=== PATIENT | female | born 1985 | race African-American/Black ===

== ENCOUNTER 2016-07-01 15:45 | Emergency (ER) | payer SELFPAY ==
--- NOTE | 2016-07-01 16:01 | ER Document Report ---
ED Medical Screen (RME) - General Time seen by provider: 16:00 Mode of Arrival: Ambulatory Information source: Patient TRAVEL OUTSIDE OF THE [place] IN LAST 30 DAYS: No - General Chief Complaint: Back Pain Stated Complaint: NECK AND BACK PAIN Notes: 30-year-old female presents to ED for neck and upper back pain. She states she was walking backwards yesterday when she turned around at the last seconds and wrist smacked into a pole. She states she did not fall down she did not lose consciousness. I have greeted and performed a rapid initial assessment of this patient. A comprehensive ED assessment and evaluation of the patient, analysis of test results and completion of medical decision making process will be conducted by an additional ED providers. (SABRINA AMARAL) - Related Data Allergies/Adverse Reactions: No Known Allergies Allergy (Unverified 07/01/16 15:53) Past Medical History - Social History Frequency of alcohol use: None Drug Abuse: None Renal/ Medical History: Denies: Hx Peritoneal Dialysis Doctor's Discharge - Discharge Clinical Impression: Cervical strain Condition: Stable Disposition: HOME, SELF-CARE Instructions: Muscle Strain ([facility]) Additional Instructions: Neck Injury (Cervical Strain) You have a neck strain. This is an injury to the muscles and ligaments in the neck. There is no evidence of a fracture of the neck bones. Also, no injury to the spinal cord or nerve roots was detected. Usually, stiffness and pain INCREASE for the first 24-48 hours after the injury. The pain will gradually resolve and the neck will become more mobile. Most patients are back at work or school within a few days. Typically, complete healing takes about two or three weeks. The usual initial treatment is rest and cold packs. A neck collar may be placed to keep the muscles of the neck at rest. Antiinflammatory and muscle relaxing medication are often used to reduce the spasm and irritation. You should call the doctor, or go to the hospital, if you develop numbness or weakness in any extremity, problems with your bladder or bowel, or pain radiating down the arms. Prescriptions: Methocarbamol [Robaxin 500 mg Tablet] 500 mg PO BID #15 tablet Forms: Return to Work
--- NOTE | 2016-07-01 18:51 | ER Document Report ---
ED Neck/Back Problem - General Mode of Arrival: Ambulatory Information source: Patient TRAVEL OUTSIDE OF THE [place] IN LAST 30 DAYS: No - HPI Patient complains to provider of: Pain - neck and left forehead, Injury, Neck Onset: Other - last night Where: Work Context: Other - see above Associated symptoms: Other - see above - General Chief Complaint: Back Pain Stated Complaint: NECK AND BACK PAIN Notes: 30-year-old female presents to the ED after running into a concrete pole last night while at work. He states that she hit her left forehead as her body was in motion. Patient claims that her neck and jaw continued in the direction of her motion while her head took the hit on the concrete pole. Patient states that she was dazed and had to hold onto the pole momentarily. Patient denies losing consciousness. (MILLIE MENJIVAR) - Related Data Allergies/Adverse Reactions: No Known Allergies Allergy (Unverified 07/01/16 15:53) Past Medical History - General Information source: Patient - Social History Smoking Status: Current Every Day Smoker Frequency of alcohol use: None Drug Abuse: None Family History: Reviewed & Not Pertinent Patient has suicidal ideation: No Patient has homicidal ideation: No - Medical History Medical History: Negative Renal/ Medical History: Denies: Hx Peritoneal Dialysis Surgical Hx: Negative Review of Systems - Review of Systems Constitutional: No symptoms reported EENT: No symptoms reported Cardiovascular: No symptoms reported Respiratory: No symptoms reported Gastrointestinal: No symptoms reported Genitourinary: No symptoms reported Female Genitourinary: No symptoms reported Musculoskeletal: See HPI, Neck pain Skin: No symptoms reported Hematologic/Lymphatic: No symptoms reported Neurological/Psychological: See HPI, Headaches - left forehead. denies: Lost consciousness -: Yes All other systems reviewed and negative Physical Exam - General General appearance: Alert In distress: None - HEENT Head: Normocephalic, Atraumatic Eyes: Normal Extraocular movements intact: Yes Pupils: PERRL Neck: Other - Paracervical strain on the right. No: Normal - Respiratory Respiratory status: No respiratory distress Breath sounds: Normal - Cardiovascular Rhythm: Regular Heart sounds: Normal auscultation - Abdominal Inspection: Normal Distension: No distension Tenderness: Nontender - Back Back: Normal, Nontender - No midline cervical tenderness. No midline cervical thoracic or lumbar tenderness., Tender - Paracervical strain on the right with parathoracic strain on the right. - Extremities General upper extremity: Normal inspection, Normal ROM General lower extremity: Normal inspection, Normal ROM - Neurological Neuro grossly intact: Yes Cognition: Normal Orientation: AAOx4 [place] Coma Scale Eye Opening: Spontaneous [place] Coma Scale Verbal: Oriented [place] Coma Scale Motor: Obeys Commands [place] Coma Scale Total: 15 Speech: Normal - Psychological Associated symptoms: Normal affect, Normal mood - Skin Skin Temperature: Warm Skin Moisture: Dry Skin Color: Normal Discharge - Discharge Clinical Impression: Strain of neck muscle Condition: Stable Disposition: HOME, SELF-CARE Instructions: Muscle Strain ([facility]) Additional Instructions: Neck Injury (Cervical Strain) You have a neck strain. This is an injury to the muscles and ligaments in the neck. There is no evidence of a fracture of the neck bones. Also, no injury to the spinal cord or nerve roots was detected. Usually, stiffness and pain INCREASE for the first 24-48 hours after the injury. The pain will gradually resolve and the neck will become more mobile. Most patients are back at work or school within a few days. Typically, complete healing takes about two or three weeks. The usual initial treatment is rest and cold packs. A neck collar may be placed to keep the muscles of the neck at rest. Antiinflammatory and muscle relaxing medication are often used to reduce the spasm and irritation. You should call the doctor, or go to the hospital, if you develop numbness or weakness in any extremity, problems with your bladder or bowel, or pain radiating down the arms. Prescriptions: Methocarbamol [Robaxin 500 mg Tablet] 500 mg PO BID #15 tablet Forms: Return to Work Scribe Documentation - Scribe Written by Kendall:: Kendall Lawson, 07/01/20162041 acting as scribe for :: Jenaro
[2016-07-01 18:59] VITALS: BP 127/81
== END 2016-07-01 18:59 | disposition home or self-care (01) ==
LOC: ER 15:45
DX: S16.1XXA Strain of muscle, fascia and tendon at neck level, initial encounter (principal); M54.2 Cervicalgia; R51 Headache; W22.09XA Striking against other stationary object, initial encounter; Y99.0 Civilian activity done for income or pay; F17.200 Nicotine dependence, unspecified, uncomplicated
CPT/HCPCS: 99283

== ENCOUNTER 2016-08-01 05:58 | Emergency (ER) | payer SELFPAY ==
[2016-08-01] MEDS ORDERED: ONDANSETRON ODT 4 MG TAB (6 TAB/DSPK) PO PRN (06:48)
[2016-08-01] MEDS ORDERED: ONDANSETRON 4 MG TAB.RAPDIS PO ONE (06:48)
[2016-08-01] MEDS ORDERED: AMOXICILLIN TRIHYDRATE 500 MG CAPSULE PO ONE (06:48)
--- NOTE | 2016-08-01 06:48 | ER Document Report ---
ED General - General Mode of Arrival: Ambulatory Information source: Patient TRAVEL OUTSIDE OF THE [place] IN LAST 30 DAYS: No - HPI Patient complains to provider of: Sinus Congestion and Vomiting Onset: Yesterday Associated symptoms: Other - see notes above - General Chief Complaint: Sinus Congestion Stated Complaint: HEADACHE POSSIBLE FEVER Notes: 30 year old female with no prior medical history presents to the ED complaining of sinus congestion and pain, headache, fever, nausea, vomiting, and diarrhea that started yesterday morning. Patient reports that she last vomited at approximately 0400 this morning. Patient is having green-yellow nasal discharge. Patient denies cough. (MILLIE MENJIVAR) - Related Data Allergies/Adverse Reactions: No Known Allergies Allergy (Unverified 07/01/16 15:53) Past Medical History - General Information source: Patient - Social History Smoking Status: Unknown if Ever Smoked Family History: Reviewed & Not Pertinent Patient has suicidal ideation: No Patient has homicidal ideation: No - Medical History Medical History: Negative Renal/ Medical History: Denies: Hx Peritoneal Dialysis Surgical Hx: Negative Review of Systems - Review of Systems Constitutional: See HPI, Fever EENT: See HPI, Nose congestion, Nose discharge, Sinus pressure Cardiovascular: No symptoms reported Respiratory: No symptoms reported. denies: Cough Gastrointestinal: See HPI, Diarrhea, Nausea, Vomiting Genitourinary: No symptoms reported Female Genitourinary: No symptoms reported Musculoskeletal: No symptoms reported Skin: No symptoms reported Hematologic/Lymphatic: No symptoms reported Neurological/Psychological: See HPI, Headaches -: Yes All other systems reviewed and negative Physical Exam - General General appearance: Alert In distress: None - HEENT Head: Normocephalic, Atraumatic Eyes: Normal Extraocular movements intact: Yes Pupils: PERRL Ears: Normal External canal: Normal Tympanic membrane: Retracted - bilaterally. No: Normal Sinus: Maxillary - Patient complains of pain with pressure to the frontal maxillary sinuses., Other - congestion. No: Normal Nasal: Other - nasal congestion. No: Normal - Respiratory Respiratory status: No respiratory distress Breath sounds: Normal - Cardiovascular Rhythm: Regular Heart sounds: Normal auscultation - Abdominal Inspection: Obese Distension: No distension Bowel sounds: Normal Tenderness: Nontender - Back Back: Normal - Extremities General upper extremity: Normal inspection, Normal ROM General lower extremity: Normal inspection, Normal ROM - Neurological Neuro grossly intact: Yes - Psychological Associated symptoms: Normal affect, Normal mood - Skin Skin Temperature: Warm Skin Moisture: Dry Skin Color: Normal - Vital signs Vitals: Temp Pulse Resp BP Pulse Ox 98.7 F 97 15 140/79 H 98 08/01/16 06:03 08/01/16 06:03 08/01/16 06:03 08/01/16 06:03 08/01/16 06:03 Discharge - Discharge Clinical Impression: Gastroenteritis Sinusitis Qualifiers: Sinusitis location: unspecified location Chronicity: acute Recurrence: not specified as recurrent Qualified Code(s): J01.90 - Acute sinusitis, unspecified Additional Instructions: Sinusitis: You have sinusitis, an infection of the sinus cavities of the face. The sinuses are air-filled chambers which open into the inside of the nose. Bacteria and pus fill a sinus, causing pain, drainage, and fever. Sinusitis is treated with antibiotics. Often, expectorants (to thin the sinus mucous) or decongestants (to reduce swelling) are prescribed as well. Healing requires seven to 10 days. Avoid chemical fumes, pollens, dusts, and smoke (especially cigarette smoke ). Keep the air humidified in your bedroom and work area and take plenty of liquids by mouth. This condition can be serious if the infection spreads. If your symptoms worsen, or if you develop severe headache, high fever, stiff neck, or a rash, you must call the doctor or return for re-evaluation. Gastroenteritis: You most likely have gastroenteritis. This is an irritation of the stomach and intestinal tract. It's usually caused by a virus, but can also be caused by bacteria, toxins that cause food poisoning, or excessive alcohol intake. Symptoms may include fever, painful abdominal cramps, nausea, vomiting , and diarrhea. Start with small amounts (two to six ounces) of clear liquids (soft drinks , herb teas, broth, etc). Try to take fluids frequently even if you are vomiting, to prevent dehydration. When liquids are being consumed successfully , advance to small amounts of bland food (mashed potato, toast) for 6 - 12 hours. Gastroenteritis rarely requires medication. It goes away by itself. Use good handwashing so you don't spread germs. Wash underwear in very hot water. If symptoms are severe, talk to the doctor. Call your physician if blood appears in your vomitus or stool, if vomiting lasts longer than 24 hours, if the abdominal pain worsens or becomes localized to one area, or if you develop high fever. TAKE THE ZOFRAN FOR NAUSEA IF NEEDED. TAKE THE AMOXICILLIN PRESCRIBED. DRINK SMALL SIPS OF COOL CLEAR LIQUIDS TODAY. REST. FOLLOW UP WITH A LOCAL MEDICAL DOCTOR IF NOT IMPROVING. RETURN TO THE EMERGENCY ROOM IF ANY NEW OR WORSENING SYMPTOMS. Prescriptions: Amoxicillin 1 tab PO TID #30 tab Ondansetron HCl [Zofran 4 mg Tablet] 1 - 2 tab PO Q4H PRN #15 tablet PRN Reason: Scribe Attestation: 08/01/16 06:53 I personally performed the services described in the documentation, reviewed and edited the documentation which was dictated to the scribe in my presence, and it accurately records my words and actions. (JORGE CURTIS) Scribe Documentation - Scribe Written by Kendall:: Kendall Lawson, 08/01/2016 0659 acting as scribe for :: Blade
[2016-08-01] MEDS ORDERED: NAPROXEN 250 MG TABLET PO ONE (07:02)
[2016-08-01 07:11] VITALS: BP 128/76
== END 2016-08-01 07:09 | disposition home or self-care (01) ==
LOC: ER 05:58
DX: K52.9 Noninfective gastroenteritis and colitis, unspecified (principal); J01.90 Acute sinusitis, unspecified; R09.81 Nasal congestion; R51 Headache; R50.9 Fever, unspecified; R11.2 Nausea with vomiting, unspecified; R19.7 Diarrhea, unspecified
CPT/HCPCS: 99283; S0119

== ENCOUNTER 2016-11-28 06:19 | Emergency (ER) | payer SELFPAY ==
--- NOTE | 2016-11-28 06:41 | ER Document Report ---
ED General - General Chief Complaint: Palpitations Stated Complaint: PALPATATIONS Time Seen by Provider: 11/28/16 06:35 TRAVEL OUTSIDE OF THE [place] IN LAST 30 DAYS: No - HPI Patient complains to provider of: Palpitations Onset: Just prior to arrival Notes: Well-appearing female no cardiac risk factors presents with perception of palpitations are concerned. Thought she had elevated blood pressure. Patient is no history of hypertension, hyperlipidemia, diabetes. No their father history of coronary disease. Patient has no chest pain, diaphoresis, nausea, vomiting. Patient has no symptoms at this time. - Related Data Allergies/Adverse Reactions: No Known Allergies Allergy (Verified 08/01/16 06:54) Past Medical History - Social History Smoking Status: Unknown if Ever Smoked Family History: Reviewed & Not Pertinent Patient has suicidal ideation: No Patient has homicidal ideation: No Renal/ Medical History: Denies: Hx Peritoneal Dialysis Review of Systems - Review of Systems Cardiovascular: Palpitations Physical Exam - Vital signs Vitals: Temp Pulse Resp BP Pulse Ox 98.3 F 87 18 132/82 H 99 11/28/16 06:20 11/28/16 06:20 11/28/16 06:20 11/28/16 06:20 11/28/16 06:20 Interpretation: Normal - General General appearance: Appears well, Alert - HEENT Head: Normocephalic, Atraumatic Eyes: Normal Pupils: PERRL - Respiratory Respiratory status: No respiratory distress Chest status: Nontender Breath sounds: Normal Chest palpation: Normal - Cardiovascular Rhythm: Regular Heart sounds: Normal auscultation Murmur: No - Abdominal Inspection: Normal Distension: No distension Bowel sounds: Normal Tenderness: Nontender Organomegaly: No organomegaly - Back Back: Normal, Nontender - Extremities General upper extremity: Normal inspection, Nontender, Normal color, Normal ROM , Normal temperature General lower extremity: Normal inspection, Nontender, Normal color, Normal ROM , Normal temperature, Normal weight bearing. No: Lindsey's sign - Neurological Neuro grossly intact: Yes Cognition: Normal Orientation: AAOx4 [place] Coma Scale Eye Opening: Spontaneous [place] Coma Scale Verbal: Oriented [place] Coma Scale Motor: Obeys Commands [place] Coma Scale Total: 15 Speech: Normal Motor strength normal: LUE, RUE, LLE, RLE Sensory: Normal - Psychological Associated symptoms: Normal affect, Normal mood - Skin Skin Temperature: Warm Skin Moisture: Dry Skin Color: Normal Course - Re-evaluation Re-evalutation: 11/28/16 07:43 Well-appearing female presents in no acute distress with resolved episodes of feeling her heart beating hard. Patient has no symptoms denies shortness of breath, nausea, vomiting, diaphoresis, chest pain. Patient happily sitting in room comfortably texting and talking with staff. Patient EKG unremarkable, chest x-ray shows no acute process as well. 11/28/16 07:44 Patient will follow-up with family doctor - Vital Signs Vital signs: Temp Pulse Resp BP Pulse Ox 98.3 F 87 21 H 130/70 H 100 11/28/16 06:20 11/28/16 06:20 11/28/16 06:40 11/28/16 06:39 11/28/16 06:40 Discharge - Discharge Clinical Impression: Heart palpitations Condition: Stable Disposition: HOME, SELF-CARE Additional Instructions: Follow-up with your family doctor. Referrals: AKI FREEDMAN MD [COMMUNITY BASED STAFF] - Follow up as needed
--- NOTE | 2016-11-28 07:41 | RADIOLOGY REPORT (SQ) ---
EXAM DESCRIPTION: CHEST PA/LAT COMPLETED DATE/TIME: 11/28/2016 7:32 am REASON FOR STUDY: palpatations COMPARISON: None. EXAM PARAMETERS: NUMBER OF VIEWS: two views TECHNIQUE: Digital Frontal and Lateral radiographic views of the chest acquired. RADIATION DOSE: NA LIMITATIONS: none FINDINGS: LUNGS AND PLEURA: No opacities, masses or pneumothorax. No pleural effusion. MEDIASTINUM AND HILAR STRUCTURES: No masses or contour abnormalities. HEART AND VASCULAR STRUCTURES: Heart normal size. No evidence for failure. BONES: No acute findings. HARDWARE: None in the chest. OTHER: No other significant finding. IMPRESSION: NO SIGNIFICANT RADIOGRAPHIC FINDING IN THE CHEST. TECHNICAL DOCUMENTATION: JOB ID: [id number] [employer]- All Rights Reserved
[2016-11-28 07:49] VITALS: BP 138/73
--- NOTE | 2016-11-28 16:33 | EKG REPORT ---
SEVERITY:- NORMAL ECG - SINUS RHYTHM : Confirmed by: Paulina Owusu 28-Nov-2016 16:32:57
== END 2016-11-28 07:52 | disposition home or self-care (01) ==
LOC: ER 06:19
DX: R00.2 Palpitations (principal); R03.0 Elevated blood-pressure reading, without diagnosis of hypertension
CPT/HCPCS: 71020; 93005; 93010; 99285

== ENCOUNTER 2017-10-15 14:19 | Emergency (ER) | payer OTHER ==
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
[2017-10-15] MEDS ORDERED: IBUPROFEN 800 MG TABLET PO ONE (15:10)
[2017-10-15] MEDS ORDERED: ACETAMINOPHEN 325 MG TABLET PO ONE (15:10)
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
[2017-10-15 16:43] VITALS: BP 129/71
== END 2017-10-15 16:43 | disposition home or self-care (01) ==
LOC: ER 14:19
DX: S16.1XXA Strain of muscle, fascia and tendon at neck level, initial encounter (principal); M41.84 Other forms of scoliosis, thoracic region; S39.012A Strain of muscle, fascia and tendon of lower back, initial encounter; V89.2XXA Person injured in unspecified motor-vehicle accident, traffic, initial encounter
CPT/HCPCS: 72040; 72070; 72110; 99283

== ENCOUNTER 2017-10-20 20:29 | Emergency (ER) | payer OTHER ==
[2017-10-20 20:38] VITALS: BP 152/98
[2017-10-20] MEDS ORDERED: PENICILLIN V POTASSIUM 500 MG TABLET PO ONE (20:52)
--- NOTE | 2017-10-20 20:54 | ER Document Report ---
HPI - HPI Patient complains to provider of: tooth pain Pain Level: 5 Context: Patient is a 31-year-old female comes emergency department for chief complaint of dental pain, she states for the past 3 days she has had pain in her right upper jaw area with a swelling sensation and shooting pain up towards her ear. She reports known fracture in that area. She does not have a dentist or dental insurance. No sore throat, fever, vomiting, or neck pain. She does not take any daily medications. - CONSTITUTIONAL Constitutional: DENIES: Fever, Chills - EENT EENT: DENIES: Sore Throat, Ear Pain, Eye problems - NEURO Neurology: DENIES: Headache, Weakness, Vision blurred, Dizzinesss / Vertigo - CARDIOVASCULAR Cardiovascular: DENIES: Chest pain - RESPIRATORY Respiratory: DENIES: Trouble Breathing, Coughing - GASTROINTESTINAL Gastrointestinal: DENIES: Abdominal Pain, Black / Bloody Stools - URINARY Urinary: DENIES: Dysuria, Urgency, Frequency - REPRODUCTIVE LMP: na Reproductive: DENIES: :, Postmenopausal, Abnormal bleeding / discharge - MUSCULOSKELETAL Musculoskeletal: DENIES: Extremity pain Past Medical History - General Information source: Patient - Social History Smoking Status: Current Every Day Smoker Chew tobacco use (# tins/day): No Smoking Education Provided: Yes - <3 min Frequency of alcohol use: None Drug Abuse: None Lives with: Family Family History: Reviewed & Not Pertinent Patient has suicidal ideation: No Patient has homicidal ideation: No - Medical History Medical History: Negative Renal/ Medical History: Denies: Hx Peritoneal Dialysis Surgical Hx: Negative - Immunizations Hx Diphtheria, Pertussis, Tetanus Vaccination: Yes Vertical Provider Document - CONSTITUTIONAL General Appearance: WD/WN, No Apparent Distress - INFECTION CONTROL TRAVEL OUTSIDE OF THE [place] IN LAST 30 DAYS: No - HEENT HEENT: Atraumatic, Normocephalic, PERRLA. negative: Pharyngeal Exudate, Pharyngeal Tenderness, Pharyngeal Erythema Mouth Diagram: 1 - Dental caries with surrounding erythema and tenderness but no swelling or fluctuance suggesting abscess. Unremarkable oropharyngeal exam otherwise - NECK Neck: Normal Inspection. negative: Lymphadenopathy-Left, Lymphadenopathy-Right - RESPIRATORY Respiratory: Breath Sounds Normal, No Respiratory Distress - CARDIOVASCULAR Cardiovascular: Regular Rate, Regular Rhythm - GI/ABDOMEN Gastrointestinal: Abdomen Soft, Abdomen Non-Tender - BACK Back: Normal Inspection - NEURO Level of Consciousness: Awake, Alert, Appropriate - DERM Integumentary: Warm, Dry, No Rash Course - Re-evaluation Re-evalutation: Dental caries with evidence of infection but no evidence of abscess at this time. Patient declines pain medication. Referred to dental clinic, provided with antibiotics, discussed expectations, follow-up, return precautions. Patient states understanding and agreement. - Vital Signs Vital signs: Temp Pulse Resp BP Pulse Ox 99.6 F 92 18 152/98 H 100 10/20/17 20:38 10/20/17 20:38 10/20/17 20:38 10/20/17 20:38 10/20/17 20:38 Discharge - Discharge Clinical Impression: Pain, dental, Dental infection Condition: Stable Disposition: HOME, SELF-CARE Additional Instructions: Take the antibiotics for the tooth infection as prescribed to completion. Called the listed referral below for follow-up and to have this repaired/ extracted or this will continue to happen. Return if you worsen including swelling of the face. [facility], [facility] [address] [facility], [id number] Prescriptions: Penicillin V Potassium [Penicillin Vk 500 mg Tablet] 500 mg PO BID #20 tablet Forms: Elevated Blood Pressure
== END 2017-10-20 21:07 | disposition home or self-care (01) ==
LOC: ER 20:29
DX: K04.7 Periapical abscess without sinus (principal); K02.9 Dental caries, unspecified; K08.89 Other specified disorders of teeth and supporting structures; F17.200 Nicotine dependence, unspecified, uncomplicated
CPT/HCPCS: 99282

== ENCOUNTER 2019-03-08 10:23 | Emergency (ER) | payer SELFPAY ==
--- NOTE | 2019-03-08 10:40 | ER Document Report ---
ED Medical Screen (RME) - General Chief Complaint: Breast Lump Stated Complaint: BREAST LUMP Time Seen by Provider: 03/08/19 10:33 Notes: Patient is a 33-year-old female who presents to the emergency department with a chief complaint of right breast pain. Patient states that earlier this year she had a lump in her breast, which she was given antibiotics for and it had went away. She states that at that time when she was seen in [place] they did not want to joe the abscess. She states that for the past week she has noticed that it had come back. She states that her bra used to help her with pain, but today she states that it is even painful to put her bra on. Exam: Deferred due to patient not being in a gown and in triage. Patient will be evaluated by a provider in the back and formal ultrasound will be done. I have greeted and performed a rapid initial assessment of this patient. A comprehensive ED assessment and evaluation of the patient, analysis of test results and completion of medical decision making process will be conducted by an additional ED providers. TRAVEL OUTSIDE OF THE [place] IN LAST 30 DAYS: No - Related Data Allergies/Adverse Reactions: morphine Allergy (Verified 03/08/19 10:32) Past Medical History - Social History Frequency of alcohol use: None Drug Abuse: None Renal/ Medical History: Denies: Hx Peritoneal Dialysis - Immunizations Hx Diphtheria, Pertussis, Tetanus Vaccination: Yes Physical Exam - Vital signs Vitals: Temp Pulse Resp BP Pulse Ox 98.3 F 80 18 135/81 H 98 03/08/19 10:28 03/08/19 10:28 03/08/19 10:28 03/08/19 10:28 03/08/19 10:28 Course - Vital Signs Vital signs: Temp Pulse Resp BP Pulse Ox 98.3 F 80 18 135/81 H 98 03/08/19 10:28 03/08/19 10:28 03/08/19 10:28 03/08/19 10:28 03/08/19 10:28
--- NOTE | 2019-03-08 11:15 | ER Document Report ---
ED Breast Problem - General Chief Complaint: Breast Lump Stated Complaint: BREAST LUMP Time Seen by Provider: 03/08/19 10:33 Information source: Patient Notes: Ms. Troncoso is a 33 yo F no significant past medical history presenting to the ED for a right breast lump. Patient states that she had a similar episode back in July or August while in [place]. At that point in time there was a discussion had whether or not to joe the lesion however the staff thought it would be more painful for her and so she was just initiated on antibiotics. She states at that point in time the swelling was significantly worse it started medially and spread across her entire breast. Over the past 3 to 4 days, she noted that this lump returned. She endorses focal tenderness over the area, mild erythema as well as warmth. Initially she was using her bra to help to support her breasts which was deviating the pain however today it became too tender and she was unable to wear a bra. Patient denies any fevers, chills, cough, chest pain, shortness of breath or abdominal pain. She has no other complaints at this point in time. Of note, patient is a with her last being 4 years ago. She has a Mirena IUD in since. TRAVEL OUTSIDE OF THE [place] IN LAST 30 DAYS: No - Related Data Allergies/Adverse Reactions: morphine Allergy (Verified 03/08/19 10:32) Past Medical History - Social History Smoking Status: Current Every Day Smoker Frequency of alcohol use: None Drug Abuse: None Family History: Reviewed & Not Pertinent Patient has suicidal ideation: No Patient has homicidal ideation: No Renal/ Medical History: Denies: Hx Peritoneal Dialysis - Immunizations Hx Diphtheria, Pertussis, Tetanus Vaccination: Yes Review of Systems - Review of Systems Constitutional: See HPI EENT: No symptoms reported Cardiovascular: No symptoms reported Respiratory: No symptoms reported Gastrointestinal: No symptoms reported Genitourinary: No symptoms reported Female Genitourinary: No symptoms reported Musculoskeletal: No symptoms reported Skin: See HPI Hematologic/Lymphatic: No symptoms reported Neurological/Psychological: No symptoms reported Physical Exam - Vital signs Vitals: Temp Pulse Resp BP Pulse Ox 98.3 F 80 18 135/81 H 98 03/08/19 10:28 03/08/19 10:28 03/08/19 10:28 03/08/19 10:28 03/08/19 10:28 Interpretation: Normal - General General appearance: Appears well, Alert - HEENT Head: Normocephalic, Atraumatic Eyes: Normal Pupils: PERRL - Respiratory Respiratory status: No respiratory distress Chest status: Nontender Breath sounds: Normal Chest palpation: Normal - Cardiovascular Rhythm: Regular Heart sounds: Normal auscultation Murmur: No - Abdominal Inspection: Normal Distension: No distension Bowel sounds: Normal Tenderness: Nontender Organomegaly: No organomegaly - Back Back: Normal, Nontender - Extremities General upper extremity: Normal inspection, Nontender, Normal color, Normal ROM, Normal temperature General lower extremity: Normal inspection, Nontender, Normal color, Normal ROM, Normal temperature, Normal weight bearing. No: Lindsey's sign - Neurological Neuro grossly intact: Yes Cognition: Normal Orientation: AAOx4 Steph Coma Scale Eye Opening: Spontaneous Steph Coma Scale Verbal: Oriented Lincoln Coma Scale Motor: Obeys Commands Lincoln Coma Scale Total: 15 Speech: Normal Motor strength normal: LUE, RUE, LLE, RLE Sensory: Normal - Psychological Associated symptoms: Normal affect, Normal mood - Skin Skin Temperature: Warm Skin Moisture: Dry Skin Color: Normal Location of irregularity: Other - There is a 2 cm round warm, mildly erythematous, and tender to palpation swelling just medial to the right nipple at approximately 4o'clock. There is no erythema that spreads past this lesion. The area is swollen with some mild fluctuance. Course - Re-evaluation Re-evalutation: Patient is generally well-appearing and nontoxic. Initial vitals within normal limits. Differential diagnosis includes cellulitis, abscess, cyst, hematoma (less likely) 03/08/19 11:16 Patient can do ultrasound. Will await results of ultrasound and reassess to see if an I&D is necessary. 03/08/19 14:46 Patient's I&D performed. Significant amount of pus was expressed which was pungent. Patient was packed with 1/4 inch packing material. Patient tolerated procedure well. Given first dose of abx here. Will DC w/ Abx and return precautions. - Vital Signs Vital signs: Temp Pulse Resp BP Pulse Ox 98.3 F 80 18 135/81 H 98 03/08/19 10:28 03/08/19 10:28 03/08/19 10:28 03/08/19 10:28 03/08/19 10:28 Procedures - Incision and Drainage Right Medial Chest Type: Simple Anesthetic type: 1% Lidocaine mL's of anesthetic: 5 Blade size: 11 I&D procedure: Betadine prep applied, Chlorprep applied Incision Method: Incision made by scalpel Amount/type of drainage: 25 Notes: 03/08/19 15:45 Copious amount of pungent foul-smelling purulent material was expressed from the right medial breast. A wound culture was also obtained. Discharge - Discharge Clinical Impression: Breast abscess, Breast pain, right Condition: Good Disposition: HOME, SELF-CARE Instructions: Abscess ([facility]), Post Incision and Drainage, Trimethoprim-Sulfa ([facility]) Additional Instructions: It is important that you take the entire course of antibiotics as prescribed, even if the redness, pain and wound looks good. I would recommend that you eat yogurt with probiotics or live cultures (such as active yet) as it will help prevent diarrhea commonly associated with antibiotics. It is important that you remove the wound packing in 2 to 3 days. I would recommend that you remove it after having a warm shower to decrease the pain. You might have ongoing drainage. If you develop worsening pain, fever, more swelling, more redness, or any other concerning symptoms, please return to the ED for further evaluation. Prescriptions: Sulfamethoxazole/Trimethoprim [Bactrim Ds Tablet] 1 tab PO BID #28 tablet
--- NOTE | 2019-03-08 11:54 | RADIOLOGY REPORT (SQ) ---
EXAM DESCRIPTION: U/S BREAST UNILATERAL LIMITED COMPLETED DATE/TIME: 03/08/2019 11:40 am REASON FOR STUDY: right breast pain COMPARISON: None TECHNIQUE: Static and Realtime grayscale interrogation of focal area(s) of concern in the right ram[place] st(s) acquired. Selected color doppler/spectral images saved to PACS. LIMITATIONS: None. FINDINGS: At the site of the palpable abnormality, at the 5 o'clock position of the right breast, th ere is a heterogeneous structure subcutaneous structure that measures approximately 3.6 x 4 x 1.7 cm. On Doppler there is increased linear flow within the lesion and around its margins. IMPRESSION: Heterogeneous subcutaneous lesion at the site of the palpable abnormality at the 5 o'gwen ck position of the right breast. The lesion is favored to represent an abscess, however if it fails to respond to appropriate treatment then a formal mammographic evaluation is recommended. BIRAD: N/A. RECOMMENDATION: RECOMMENDED FOLLOW-UP: Follow-up as clinically indicated. COMMENT: The [employer] ([employer]) has developed recommendations for screening MRI of the breasts in certain patient populations, to be used in conjunction with mammography. Breast MRI s urveillance may be appropriate for women with more than 20% lifetime risk of developing breast cancer as determined by genetic testing, significant family history of the disease, or history of mantle r adiation for Hodgkins Disease. ACR Practice Guidelines 2008. TECHNICAL DOCUMENTATION: FINDING NUMBER: (1) ASSESSMENT: (1) JOB ID: [id number] [employer]- All Rights Reserved Reading location - IP/workstation name: [email or web address]
[2019-03-08] MEDS ORDERED: SULFAMETHOXAZOLE/TRIMETHOPRIM 800-160 MG TABLET PO ONE (15:40)
[2019-03-08 16:36] VITALS: BP 122/76
== END 2019-03-08 16:38 | disposition home or self-care (01) ==
LOC: ER 10:23
DX: N61.1 Abscess of the breast and nipple (principal); F17.200 Nicotine dependence, unspecified, uncomplicated; Z88.6 Allergy status to analgesic agent
CPT/HCPCS: 76642; 87070; 87075; 87077; 87186; 87205; 99283